=== PATIENT | male | born 1980 | race Hispanic/Latino ===

== ENCOUNTER 2024-11-07 14:52 | Emergency (ER) | payer BC ==
[~2024-11-07] VITALS: Ht 152.4 cm; Wt 7.7 kg
[2024-11-07 14:54] VITALS: BP 128/89; PULSE 80; RESP 16; TEMP 99.1
--- NOTE | 2024-11-07 15:50 | ERN ---
ED Note History of Present Illness Stated Complaint: HEADACHE Chief Complaint: Headache Time Seen by MD: 14:55 Dictation: HISTORY OF PRESENT ILLNESS: 43-year-old male with no significant past medical history presented to ED with complaints of chronic headache for past 1 month. He states that he he developed headache mostly on the posterior and the vertical part of head which comes and goes and has been almost constant throughout the day .2 tablets of Tylenol helps with a little effect. His headache worsens whi le stooping forward. He also complains of occasional dizziness. He denies any history of upper respiratory infection, sinusitis, ear infection. 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 He went to [place] for a detailed workup. 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 He is pending an appointment with a specialist in [facility], [place]. He denies fever, nausea, sore throat, vomiting, hearing loss, photophobia, flushing, quadrant from eyes, rhinorrhea. His vitals are stable at the time of presentation. Allergies: Coded Allergies: No Known Drug Allergies (Unverified Allergy, Unknown, 11/07/24) Home Meds Active Scripts Ketorolac Tromethamine (Toradol) 10 Mg Tab, 10 MG PO BID PRN for PAIN for 10 Days, #20 TAB 0 Refills Prov:HOLA LOBATO MD 11/07/24 Past Medical History Past Medical History: No Pertinent History Surgical History: None Review of System Dictation REVIEW OF SYSTEMS Positive for throbbing headache and dizziness CONSTITUTIONAL: Denies fevers, chills, or night sweats. No unintentional weight loss reported. ENT: No hearing loss, otalgia, otorrhea, rhinitis, rhinorrhea, hoarseness, or sore throat. CARDIOVASCULAR: Denies any exertional angina, dyspnea on exertion, orthopnea, paroxysmal nocturnal dyspnea, palpitations claudication. PULMONARY: Denies any shortness of breath, cough, phlegm / sputum, hemoptysis, pleuritic chest pain. SLEEP: Denies morning headaches, daytime somnolence or napping. Denies difficulty falling asleep, staying asleep, waking from sleep. Denies knowledge of snoring. GASTROINTESTINAL: Denies any type of dysphagia to either liquids or solids. Denies nausea, vomiting, abdominal pain, diarrhea, constipation, blood in stools . NEUROLOGICAL: Denies headache, motor weakness, sensory deficit, vertigo / spinning sensation, gait abnormalities, or tremors. GENITOURINARY: Denies frequency, urgency, nocturia, hematuria or incontinence, low urinary stream, straining to void, urinary intermittency or hesitancy ENDOCRINOLOGY: Denies polyuria, polydipsia, polyphagia or heat / cold intolerance. HEMATOLOGY: Denies thrombophilia / previous clots, or coagulopathy / bleeding disorders. ONCOLOGIC: Denies personal history of malignancy. DERMATOLOGIC: Denies rashes or pruritus. PSYCHIATRIC: Denies any suicidal or homicidal ideation. Denies hallucinations. Initial Vital Sign VS Vital Signs Date Time Temp Pulse Resp B/P (MAP) Pulse Ox O2 Delivery O2 Flow Rate FiO2 11/07/24 14:54 99.1 80 16 128/89 98 Room Air Physical Exam Dictation PHYSICAL EXAM GENERAL APPEARANCE: Well nourished . Awake and alert. Oriented to time, place and person. No acute cardiopulmonary distress. HEENT: Head normocephalic , atraumatic. Sclera anicteric . Pupils are round and reactive. Bilateral otoscopic examination: Tense white tympanic membrane over the left side. Transparent and bulging tympanic membrane on the right side with white deposits. NECK: Supple. No JVD. No thyromegaly. No submental, submandibular, pre- /postauricular, occipital or supraclavicular lymphadenopathy. No carotid bruits. CHEST: Normal chest expansion. No Telemetry. LUNGS: Clear to auscultation bilaterally . No rales, rhonchi or any wheezing. Equal tactile fremitus. Resonant to percussion . CARDIOVASCULAR: Regular rate and rhythm. S1 and S2 normal. No rubs, murmurs or gallops. ABDOMEN: Soft, nontender, and nondistended. There is no rebound tenderness, voluntary guarding, or rigidity. No hepatosplenomegaly. Bowel sounds normal in all four quadrants . NEUROLOGICAL: No nystagmus, no cerebellar signs. Cranial nerves II-XII grossly intact. Motor is 5/5 in bilateral upper and lower extremities . No sensory deficits. EXTREMITIES: No edema, No cyanosis , No clubbing. Good capillary refill. SKIN: No skin breakdown. No rashes or lesions . Results (Laboratory/Radiology) CT Scan Comment: PROCEDURE: HEAD WO - CT HEAD/BRAIN W/O CONTRAST Exam Type: CT HEAD/BRAIN W/O CONTRAST Clinical Information: WEBB Comparison: None CT Dose Index (CTDI): 57.33 mGy Dose Length Product (DLP): 956.79 total mGy-cm Findings: The examination is unremarkable. Fitzgerald-white matter junction is preserved. No intra or extra axial lesions or fluid collections are seen. Specifically, fitzgerald and white matter are normal in signal characteristics with normal caliber of ventricles and periventricular cisterns with no evidence of intra or or extra-axial hemorrhage, lacunar infarct, or major territorial infarct, mass, or other abnormality. There are no infarcts. There are no hemorrhages. Periventricular white matter locations are preserved. The orbital contents and structures of the posterior fossa are intact. Impression: Normal CT of the head. This study was performed using dose reduction techniques to include automated exposure control and/or adjustment of the mA and/or kV according to patient size. DICTATED BY: EILAS WILDE MD DATE: 11/07/24 1603 ELECTRONICALLY SIGNED BY: ELIAS WILDE MD DATE: 11/07/24 1607 ED Course ED Course Orders Procedure Category Date Status Time Ct Head/Brain W/O CT 11/07/24 Resulted Contrast 15:22 Ketorolac PHA 11/07/24 Complete Tromethamine 30mg/Ml 16:30 Current Medications Medications (Trade) Dose Ordered Sig/Kriss Route PRN Reason Start Time Stop Time Status Last Admin Dose Admin Ketorolac Tromethamine (toRADol) 30 mg ONCE ONCE IM 11/07/24 16:30 11/07/24 17:02 DC 11/07/24 17:04 Vital Signs Date Time Temp Pulse Resp B/P (MAP) Pulse Ox O2 Delivery O2 Flow Rate FiO2 11/07/24 14:54 99.1 80 16 128/89 98 Room Air 3:00 p.m.: Patient is hemodynamically stable. Currently headache. We will request a head CT injection Toradol stat 4:00 p.m.: CT head is negative for any acute pathology. Discussed with the patient the probable cause of chronic kidney might be chronic sinusitis, chronic middle ear pathology. Recommended him to see an ENT specialist. We will discharge him home on Toradol for chronic headache. Medical Decision Making MDM Differential diagnosis : Chronic sinusitis, migraine, Rationale: Tests considered and ordered secondary to shared decision making include: I will re-evaluate the patient after treatment and diagnostic exams have returned to determine whether they require further testing, can be safely discharged home, or need admission for further treatment and evaluation. Given the social determinants of health affecting care, including literacy, access to medical care, prescription drug management, and [id number] drugs, I will ensure that treatment plans are tailored accordingly. There are no social concerns with this patient. Risk of complication and/or morbidity or mortality of patient management: None Need for hospitalization: Patient does not meet criteria for hospitalization. Need for emergency major/minor surgery: No Prescription drug management Prescriptions will include symptomatic care Medications-Per medication reconciliation Previous outside records reviewed: Old ER visits. Patient's prior external medical records from other ER visits were reviewed by me as indicated. Prior testing and results from previous visits were reviewed. Prior tests were taken into account with medical decision making and resource utilization, independent historian/historians were used to obtain complete medical history. I independently interpreted the test that were performed, results were reviewed by me and considered findings on radiology. Medical management and examination interpretation discussions was done by me with other qualified healthcare professionals as indicated for the patient's care. Revaluation: Normal CT brain. Tympanic membrane opacity noted. Discussed with the patient the probable cause of chronic headache might be chronic sinusitis, chronic middle ear pathology. Recommended him to see an ENT specialist. We will discharge him home on Toradol for chronic headache Disposition : Home DX & DISP Disposition: Discharge Departure Impression: Primary Impression: Chronic headache Additional Impression: Middle ear infection, chronic Condition: Stable Scripts Ketorolac Tromethamine (Toradol) 10 Mg Tab 10 MG PO BID PRN for PAIN for 10 Days, #20 TAB 0 Refills Prov: HOLA LOBATO MD 11/07/24 Additional Instructions: You are diagnosed with chronic headache and middle ear disease. Follow-up with primary care provider in 1-2 days for a possible ENT referral Take medications as directed here in the emergency room. It is okay to continue home medications unless otherwise discussed during your visit in the emergency room today. Increase oral hydration. If a wound culture or urine culture was ordered here in the emergency room department, please follow-up with primary care provider and advised them to get reports from our facility. If you had any Wes wrap/splints that were applied here placed to not remove them until you see your primary care physician. Return to your nearest emergency room if symptoms worsen or if there is no improvement. Call 911 if you need immediate assistance. ATTESTATION BY PHYSICIAN I have seen and examined the patient. I reviewed the documentation, medical decision making, and treatment plan as noted by the resident provider above. I agree with the findings and plan of care. Dr. Freddy Juarez MD I performed the substantive portion of the visit. I have reviewed and personally made and approve the management plan that is documented in the notes by myself or the resident physician. I acknowledge full responsibility for the patient's management plan. HOLA LOBATO MD Nov 07, 2024 15:50 FREDDY JUAREZ MD Nov 08, 2024 07:33
--- NOTE | 2024-11-07 16:07 | HMCIMG ---
Exam Type: CT HEAD/BRAIN W/O CONTRAST Clinical Information: WEBB Comparison: None CT Dose Index (CTDI): 57.33 mGy Dose Length Product (DLP): 956.79 total mGy-cm Findings: The examination is unremarkable. Fitzgerald-white matter junction is preserved. No intra or extra axial lesions or fluid collections are seen. Specifically, fitzgerald and white matter are normal in signal characteristics with normal caliber of ventricles and periventricular cisterns with no evidence of intra or or extra-axial hemorrhage, lacunar infarct, or major territorial infarct, mass, or other abnormality. There are no infarcts. There are no hemorrhages. Periventricular white matter locations are preserved. The orbital contents and structures of the posterior fossa are intact. Impression: Normal CT of the head. This study was performed using dose reduction techniques to include automated exposure control and/or adjustment of the mA and/or kV according to patient size.
[2024-11-07] MEDS ORDERED: KETO10 PO (16:39)
[2024-11-07] MEDS: ketOROlac 30MG VIAL (30MG/ML) IM ONE (17:04)
--- NOTE | 2024-11-07 17:11 | NUR ---
PT STATES RECCURENT HEADACHES X 1 MONTH
== END 2024-11-07 17:28 | disposition home or self-care (01) ==
LOC: EDH 14:52
DX: R51.9 Headache, unspecified (principal); H66.91 Otitis media, unspecified, right ear; Z20.822 Contact with and (suspected) exposure to COVID-19
CPT/HCPCS: 99284; 70450; 96372; J1885